=== PATIENT | female | born 1945 | race Caucasian/White ===

== ENCOUNTER 2018-08-13 09:10 | Inpatient (IN) ==
[2018-08-13] MEDS ORDERED: ACETAMINOPHEN 500 MG TABLET PO STA (09:40)
[2018-08-13] MEDS ORDERED: ALBUTEROL 2.5 MG/3 ML NEB RESP TX STA (09:41)
[2018-08-13] MEDS ORDERED: SODIUM CHLORIDE 0.9% 1,000 ML IV STA (09:41)
[2018-08-13 10:00] LABS: Basophils # 0.1 10*3/uL (0.0-0.2); Basophils % 0.3 % (0.0-0.8); Eosinophils # 0.1 10*3/uL (0.0-0.87); Eosinophils % 0.4 % (0.00-10.9); Hematocrit 36.1 VOL% (35.7-47.0); Hemoglobin 11.7 GM/DL (12.0-16.0); Immature Granulocytes % 0.7 %; Immature Granulocytes Absolute 0.12 #; Lymphocytes # 0.7 10*3/uL (1.4-4.0); Lymphocytes % 4.3 % (21.3-54.2); Mean Corpuscular HGB Conc 32.4 GM/DL (32-36); Mean Corpuscular Hemoglobin 29 PG (27-34); Mean Corpuscular Volume 89.8 FL (87-102); Mean Platelet Volume 8.9 FL (9.6-12.0); Monocytes # 0.6 10*3/uL (0.11-0.8); Monocytes % 3.6 % (1.7-12.7); Neutrophils % 90.7 % (38.7-73.9); Platelet Count 270 T/CUMM (130-400); Red Blood Count 4.02 MC/CUMM (3.8-5.5); Red Cell Distribution Width 13.3 % (9.3-17.3); White Blood Count 16.5 T/CUMM (4-12)
[2018-08-13 10:14] LABS: Calcium 9.3 MG/DL (8.5-10.1); Potassium 3.7 MMOL/L (3.5-5.1)
[2018-08-13 10:18] LABS: Lactic Acid 1.3 MMOL/L (0.4-2.0)
[2018-08-13 10:19] LABS: Band Neutrophils 9 % (0-10); Lymphocytes 2 % (20-55); Platelet Estimate Normal; Segmented Neutrophils 85 % (50-85); Total Cells Counted 100
[2018-08-13 10:20] LABS: Anisocytosis Slight
[2018-08-13] MEDS ORDERED: LEVOFLOXACIN INJ 500 MG in PREMIX 1 EACH IV STA (11:48)
[2018-08-13] MEDS ORDERED: ACETAMINOPHEN 325 MG TABLET PO PRN (12:46)
[2018-08-13] MEDS ORDERED: ONDANSETRON 4 MG/2 ML VIAL IV PRN (12:46)
[2018-08-13] MEDS ORDERED: ALBUTEROL 2.5 MG/3 ML NEB RESP TX PRN (12:51)
[2018-08-13] MEDS: ENOXAPARIN 40 MG/0.4 ML SYRINGE SUBCUT SCH (14:11)
[2018-08-13] MEDS: ALBUTEROL/IPRATROPIUM 3 ML NEB RESP TX SCH ×2 (14:20→19:05)
[2018-08-13] MEDS ORDERED: TEMAZEPAM 15 MG CAPSULE PO SCH (21:00)
[2018-08-13] MEDS ORDERED: ESCITALOPRAM 10 MG TABLET PO SCH (21:00)
[2018-08-13] MEDS: guaiFENesin/DM ER 600-30 MG TABLET PO SCH (21:12)
[2018-08-14] MEDS: ALBUTEROL/IPRATROPIUM 3 ML NEB RESP TX SCH ×3 (00:20→13:48)
[2018-08-14 04:05] LABS: Basophils # 0.1 10*3/uL (0.0-0.2); Basophils % 0.4 % (0.0-0.8); Eosinophils # 0.3 10*3/uL (0.0-0.87); Eosinophils % 1.8 % (0.00-10.9); Hematocrit 31.5 VOL% (35.7-47.0); Hemoglobin 9.9 GM/DL (12.0-16.0); Immature Granulocytes % 0.5 %; Immature Granulocytes Absolute 0.07 #; Lymphocytes # 0.8 10*3/uL (1.4-4.0); Lymphocytes % 5.8 % (21.3-54.2); Mean Corpuscular HGB Conc 31.4 GM/DL (32-36); Mean Corpuscular Hemoglobin 28 PG (27-34); Mean Corpuscular Volume 88.5 FL (87-102); Mean Platelet Volume 9.6 FL (9.6-12.0); Monocytes # 0.9 10*3/uL (0.11-0.8); Monocytes % 6.8 % (1.7-12.7); Neutrophils # 11.7 10*3/uL (1.4-7.4); Neutrophils % 84.7 % (38.7-73.9); Platelet Count 249 T/CUMM (130-400); Red Blood Count 3.56 MC/CUMM (3.8-5.5); Red Cell Distribution Width 13.2 % (9.3-17.3); White Blood Count 13.8 T/CUMM (4-12)
[2018-08-14 04:37] LABS: Calcium 8.9 MG/DL (8.5-10.1); Potassium 3.3 MMOL/L (3.5-5.1); Thyroid Stimulating Hormone 0.937 uIU/ml (0.358-3.74)
[2018-08-14] MEDS ORDERED: MONTELUKAST 10 MG TABLET PO SCH (09:00)
[2018-08-14] MEDS ORDERED: OXYBUTYNIN XL 15 MG TABLET PO SCH (09:00)
[2018-08-14] MEDS ORDERED: ANASTROZOLE 1 MG TABLET PO SCH (09:00)
[2018-08-14] MEDS ORDERED: MELOXICAM 7.5 MG TABLET PO SCH (09:00)
[2018-08-14] MEDS ORDERED: PANTOPRAZOLE 40 MG TABLET PO SCH ×2 (09:00)
[2018-08-14] MEDS: guaiFENesin/DM ER 600-30 MG TABLET PO SCH (09:30)
[2018-08-14] MEDS: ENOXAPARIN 40 MG/0.4 ML SYRINGE SUBCUT SCH (12:08)
[2018-08-14 12:18] VITALS: BP 139/79
[2018-08-14] MEDS ORDERED: POTASSIUM CHLORIDE 20 MEQ TABLET PO ONE (12:44)
[2018-08-14] MEDS ORDERED: LEVOFLOXACIN INJ 750 MG in PREMIX 1 EACH IV SCH (13:00)
[2018-08-14] MEDS ORDERED: LEVOFLOXACIN 500 MG TABLET PO SCH (14:00)
== END 2018-08-14 15:58 | disposition home or self-care (01) | DRG 195 ==
LOC: EDUNIT# → EDBD → N.ED 09:10 → N.EDINP 12:46 → N.3E 14:38
PROVIDERS: ADMIT Hospitalist; ATTEND Hospitalist

== ENCOUNTER 2020-11-22 18:39 | Inpatient (IN) ==
[2020-11-22 19:20] LABS: Basophils # 0.1 10*3/uL (0.0-0.2); Basophils % 0.4 % (0.0-0.8); Eosinophils # 0.1 10*3/uL (0.0-0.87); Eosinophils % 0.6 % (0.00-10.9); Hematocrit 33.3 VOL% (35.7-47.0); Hemoglobin 10.6 GM/DL (12.0-16.0); Immature Granulocytes % 1.1 %; Immature Granulocytes Absolute 0.14 #; Lymphocytes # 0.2 10*3/uL (1.4-4.0); Lymphocytes % 1.3 % (21.3-54.2); Mean Corpuscular HGB Conc 31.8 GM/DL (32-36); Mean Platelet Volume 9.4 FL (9.6-12.0); Monocytes % 1.3 % (1.7-12.7); Neutrophils % 95.3 % (38.7-73.9); Platelet Count 262 T/CUMM (130-400); Red Blood Count 3.58 MC/CUMM (3.8-5.5); Red Cell Distribution Width 13.1 % (9.3-17.3); White Blood Count 12.8 T/CUMM (4-12)
[2020-11-22] MEDS ORDERED: LEVOFLOXACIN INJ 500 MG in PREMIX 1 EACH IV STA (19:40)
[2020-11-22] MEDS ORDERED: methylPREDNISolone SOD SUC 125 MG/2 ML VIAL IV STA (19:40)
[2020-11-22 19:44] LABS: Albumin 2.3 G/DL (3.4-5.0); Bilirubin,Total 0.8 MG/DL (0.2-1.0); Calcium 8.7 MG/DL (8.5-10.1); Potassium 3.9 MMOL/L (3.5-5.1); Total Protein 6.6 G/DL (6.4-8.3)
[2020-11-22 19:51] LABS: Band Neutrophils 11 % (0-10); Elliptocytes Few; Lymphocytes 2 % (20-55); Metamyelocytes 1 %; Segmented Neutrophils 84 % (50-85); Total Cells Counted 100
[2020-11-22 19:52] LABS: Burr Cells Few; Hypochromasia 1+; Platelet Estimate Adequate
[2020-11-22] MEDS ORDERED: DEXTROSE 50% 25 GM/50 ML VIAL IV PRN (20:45)
[2020-11-22] MEDS ORDERED: NICOTINE 21 MG/24 HR PATCH TRANSDERM PRN (20:45)
[2020-11-22] MEDS ORDERED: ACETAMINOPHEN 325 MG TABLET PO PRN (20:45)
[2020-11-22] MEDS ORDERED: GLUCAGON 1 MG VIAL IM PRN (20:45)
[2020-11-22] MEDS ORDERED: MORPHINE 4 MG/1 ML VIAL IV PRN (20:45)
[2020-11-22] MEDS ORDERED: ONDANSETRON 4 MG/2 ML VIAL IV PRN (20:45)
[2020-11-22 21:11] LABS: Ferritin 101.3 ng/ml (8-252)
[2020-11-22 23:49] LABS: ABG Base Excess -4.8 MMOL/L (-2.5-2.5); ABG HCO3 20.4 MMOL/L (20-26); ABG Oxygen Saturation 94.3 % (95-100); ABG PH 7.333 (7.35-7.45); ABG PO2 78.2 MM HG (80-95); ABG TCO2 18.8 MMOL/L (23-27); Allen Test Positive
[2020-11-23] MEDS: ALBUTEROL/IPRATROPIUM 3 ML NEB RESP TX SCH ×2 (00:34→07:22)
[2020-11-23] MEDS ORDERED: BENRALIZUMAB 30 MG/ML SYRINGE SUBCUT SCH (02:30)
[2020-11-23] MEDS: ESCITALOPRAM 10 MG TABLET PO SCH ×2 (02:48→21:02)
[2020-11-23] MEDS: MONTELUKAST 10 MG TABLET PO SCH ×2 (02:48→21:02)
[2020-11-23] MEDS: DICLOFENAC SODIUM 50 MG TABLET PO SCH ×3 (02:48→21:02)
[2020-11-23] MEDS: ZALEPLON 5 MG CAPSULE PO SCH ×2 (02:49→21:03)
[2020-11-23] MEDS: BUDESONIDE/FORMOTEROL 160-4.5 INHALER 6 GM INH SCH ×3 (03:10→21:03)
[2020-11-23 06:57] LABS: Albumin 2.2 G/DL (3.4-5.0); Bilirubin,Total 0.5 MG/DL (0.2-1.0); Calcium 8.9 MG/DL (8.5-10.1); Total Protein 6.4 G/DL (6.4-8.3)
[2020-11-23] MEDS ORDERED: IPRATROPIUM 500 MCG/2.5 ML NEB RESP TX SCH (07:00)
[2020-11-23] MEDS ORDERED: methylPREDNISolone 4 MG TABLET PO SCH (09:00)
[2020-11-23] MEDS ORDERED: methylPREDNISolone SOD SUC 40 MG/1 ML VIAL IV SCH (09:00)
[2020-11-23] MEDS: MULTIVITAMIN (CENTRUM) TABLET PO SCH (09:37)
[2020-11-23] MEDS: CALCIUM (CARBONATE)/VITAMIN D 600 MG-400 UNIT TABLET PO SCH (09:37)
[2020-11-23] MEDS: guaiFENesin/DM ER 600-30 MG TABLET PO SCH ×2 (09:37→21:02)
[2020-11-23] MEDS: OXYBUTYNIN XL 15 MG TABLET PO SCH (09:38)
[2020-11-23] MEDS: PANTOPRAZOLE 40 MG TABLET PO SCH (09:38)
[2020-11-23] MEDS: methylPREDNISolone SOD SUC 40 MG/1 ML VIAL IV SCH ×2 (09:50→19:09)
[2020-11-23] MEDS ORDERED: MAGNESIUM SULF RIDER 4 GM in PREMIX 1 EACH IV PRN (14:19)
[2020-11-23] MEDS ORDERED: MAGNESIUM SULF RIDER 2 GM in PREMIX 1 EACH IV PRN (14:19)
[2020-11-23] MEDS: ENOXAPARIN 60 MG/0.6 ML SYRINGE SUBCUT SCH (15:41)
[2020-11-23] MEDS: SODIUM CHLORIDE 0.9% 1,000 ML IV SCH (16:46)
[2020-11-23] MEDS: LEVOFLOXACIN INJ 500 MG in PREMIX 1 EACH IV SCH (21:03)
[2020-11-23] MEDS: IPRATROPIUM 500 MCG/2.5 ML NEB RESP TX SCH (23:04)
[2020-11-23] MEDS: LEVALBUTEROL 1.25 MG/3 ML NEB RESP TX SCH (23:04)
[2020-11-24] MEDS: methylPREDNISolone SOD SUC 40 MG/1 ML VIAL IV SCH ×3 (02:36→17:15)
[2020-11-24] MEDS: SODIUM CHLORIDE 0.9% 1,000 ML IV SCH (05:06)
[2020-11-24] MEDS: ENOXAPARIN 60 MG/0.6 ML SYRINGE SUBCUT SCH (05:13)
[2020-11-24] MEDS: LEVALBUTEROL 1.25 MG/3 ML NEB RESP TX SCH ×4 (06:52→23:34)
[2020-11-24] MEDS: IPRATROPIUM 500 MCG/2.5 ML NEB RESP TX SCH ×3 (06:52→23:34)
[2020-11-24 07:01] LABS: Basophils % 0.1 % (0.0-0.8); Hematocrit 31.6 VOL% (35.7-47.0); Hemoglobin 10.1 GM/DL (12.0-16.0); Immature Granulocytes % 1.5 %; Immature Granulocytes Absolute 0.23 #; Lymphocytes # 0.2 10*3/uL (1.4-4.0); Lymphocytes % 1.5 % (21.3-54.2); Mean Corpuscular Volume 93.8 FL (87-102); Mean Platelet Volume 9.2 FL (9.6-12.0); Monocytes % 3.4 % (1.7-12.7); Neutrophils % 93.5 % (38.7-73.9); Platelet Count 264 T/CUMM (130-400); Red Blood Count 3.37 MC/CUMM (3.8-5.5); Red Cell Distribution Width 13.5 % (9.3-17.3); White Blood Count 15.7 T/CUMM (4-12)
[2020-11-24 07:19] LABS: Platelet Estimate Adequate; Segmented Neutrophils 97 % (50-85); Total Cells Counted 100
[2020-11-24 07:20] LABS: Hypochromasia 1+; Microcytosis 1+
[2020-11-24 07:22] LABS: Ferritin 95.3 ng/ml (8-252)
[2020-11-24 07:36] LABS: Albumin 2.1 G/DL (3.4-5.0); Bilirubin,Total 1.1 MG/DL (0.2-1.0); Calcium 9.9 MG/DL (8.5-10.1); Osmolality,Calculated 278.1 MOS/KG (273-304); Potassium 3.7 MMOL/L (3.5-5.1); Total Protein 6.8 G/DL (6.4-8.3)
[2020-11-24 08:12] LABS: Hepatitis B Core IgM Quant 0.06 Index; Hepatitis B Surface Ag Quant < 0.10 Index; Hepatitis B Surface Ag Result Non-Reactive (NonReactive); Hepatitis C Virus Ab Quant 0.05 Index; Hepatitis C Virus Ab Result Non-Reactive (NonReactive)
[2020-11-24] MEDS: PANTOPRAZOLE 40 MG TABLET PO SCH (10:21)
[2020-11-24] MEDS: MULTIVITAMIN (CENTRUM) TABLET PO SCH (10:22)
[2020-11-24] MEDS: OXYBUTYNIN XL 15 MG TABLET PO SCH (10:22)
[2020-11-24] MEDS: CALCIUM (CARBONATE)/VITAMIN D 600 MG-400 UNIT TABLET PO SCH (10:22)
[2020-11-24] MEDS: guaiFENesin/DM ER 600-30 MG TABLET PO SCH ×2 (10:22→20:27)
[2020-11-24] MEDS: DICLOFENAC SODIUM 50 MG TABLET PO SCH ×2 (10:22→20:27)
[2020-11-24] MEDS: BUDESONIDE/FORMOTEROL 160-4.5 INHALER 6 GM INH SCH ×2 (10:37→20:34)
[2020-11-24] MEDS: carvediloL 6.25 MG TABLET PO SCH ×2 (10:37→17:16)
[2020-11-24] MEDS: RIVAROXABAN 15 MG TABLET PO SCH (17:16)
[2020-11-24] MEDS: ESCITALOPRAM 10 MG TABLET PO SCH (20:27)
[2020-11-24] MEDS: LEVOFLOXACIN INJ 500 MG in PREMIX 1 EACH IV SCH (20:28)
[2020-11-24] MEDS: MONTELUKAST 10 MG TABLET PO SCH (20:28)
[2020-11-24] MEDS: ZALEPLON 5 MG CAPSULE PO SCH (20:28)
[2020-11-25] MEDS: methylPREDNISolone SOD SUC 40 MG/1 ML VIAL IV SCH ×3 (03:00→19:08)
[2020-11-25] MEDS: IPRATROPIUM 500 MCG/2.5 ML NEB RESP TX SCH ×2 (06:52→23:11)
[2020-11-25] MEDS: LEVALBUTEROL 1.25 MG/3 ML NEB RESP TX SCH ×2 (06:52→23:11)
[2020-11-25 07:21] LABS: Alanine Aminotransferase 100 U/L (13-56); Alkaline Phosphatase 151 U/L (45-117); Aspartate Amino Transferase 24 U/L (0-37); Bilirubin,Total < 0.39 MG/DL (0.2-1.0); Blood Urea Nitrogen 40 MG/DL (7-18); Calcium 9.3 MG/DL (8.5-10.1); Carbon Dioxide 26 MMOL/L (21-32); Estimated Glom Filtration Rate 66 ML/MIN; Glucose 127 MG/DL (74-106); Osmolality,Calculated 286.7 MOS/KG (273-304); Sodium 138 MMOL/L (136-145); Total Protein 6.1 G/DL (6.4-8.3)
[2020-11-25] MEDS: CALCIUM (CARBONATE)/VITAMIN D 600 MG-400 UNIT TABLET PO SCH (10:00)
[2020-11-25] MEDS: DICLOFENAC SODIUM 50 MG TABLET PO SCH ×2 (10:00→21:24)
[2020-11-25] MEDS: PANTOPRAZOLE 40 MG TABLET PO SCH (10:00)
[2020-11-25] MEDS: MULTIVITAMIN (CENTRUM) TABLET PO SCH (10:00)
[2020-11-25] MEDS: OXYBUTYNIN XL 15 MG TABLET PO SCH (10:00)
[2020-11-25] MEDS: BUDESONIDE/FORMOTEROL 160-4.5 INHALER 6 GM INH SCH (10:00)
[2020-11-25] MEDS: RIVAROXABAN 15 MG TABLET PO SCH ×2 (10:00→18:37)
[2020-11-25] MEDS: guaiFENesin/DM ER 600-30 MG TABLET PO SCH ×2 (10:00→21:24)
[2020-11-25] MEDS: carvediloL 6.25 MG TABLET PO SCH ×2 (10:00→18:38)
[2020-11-25] MEDS ORDERED: FUROSEMIDE 20 MG/2 ML VIAL IV ONE ×2 (12:23→21:07)
[2020-11-25] MEDS: LEVOFLOXACIN INJ 500 MG in PREMIX 1 EACH IV SCH (21:23)
[2020-11-25] MEDS: ZALEPLON 5 MG CAPSULE PO SCH (21:23)
[2020-11-25] MEDS: ESCITALOPRAM 10 MG TABLET PO SCH (21:24)
[2020-11-25] MEDS: MONTELUKAST 10 MG TABLET PO SCH (21:24)
[2020-11-26] MEDS: BUDESONIDE/FORMOTEROL 160-4.5 INHALER 6 GM INH SCH ×2 (00:52→09:58)
[2020-11-26] MEDS: methylPREDNISolone SOD SUC 40 MG/1 ML VIAL IV SCH ×2 (02:58→09:56)
[2020-11-26 06:14] LABS: Basophils % 0.1 % (0.0-0.8); Hematocrit 30.9 VOL% (35.7-47.0); Hemoglobin 10.2 GM/DL (12.0-16.0); Immature Granulocytes % 2.8 %; Immature Granulocytes Absolute 0.21 #; Lymphocytes # 0.3 10*3/uL (1.4-4.0); Lymphocytes % 3.9 % (21.3-54.2); Mean Corpuscular Volume 91.4 FL (87-102); Mean Platelet Volume 9.5 FL (9.6-12.0); Monocytes % 6.4 % (1.7-12.7); Neutrophils % 86.8 % (38.7-73.9); Platelet Count 274 T/CUMM (130-400); Red Blood Count 3.38 MC/CUMM (3.8-5.5); Red Cell Distribution Width 13.6 % (9.3-17.3); White Blood Count 7.5 T/CUMM (4-12)
[2020-11-26 06:32] LABS: Calcium 9.7 MG/DL (8.5-10.1); Potassium 4.2 MMOL/L (3.5-5.1)
[2020-11-26] MEDS: IPRATROPIUM 500 MCG/2.5 ML NEB RESP TX SCH ×2 (06:55→07:35)
[2020-11-26] MEDS: LEVALBUTEROL 1.25 MG/3 ML NEB RESP TX SCH ×2 (06:56→07:35)
[2020-11-26 07:31] LABS: Band Neutrophils 1 % (0-10); Hypochromasia 1+; Lymphocytes 8 % (20-55); Microcytosis 1+; Ovalocytes Slight; Segmented Neutrophils 87 % (50-85); Total Cells Counted 100
[2020-11-26 07:33] LABS: Platelet Estimate Normal
[2020-11-26] MEDS: DICLOFENAC SODIUM 50 MG TABLET PO SCH (09:56)
[2020-11-26] MEDS: OXYBUTYNIN XL 15 MG TABLET PO SCH (09:56)
[2020-11-26] MEDS: guaiFENesin/DM ER 600-30 MG TABLET PO SCH (09:56)
[2020-11-26] MEDS: CALCIUM (CARBONATE)/VITAMIN D 600 MG-400 UNIT TABLET PO SCH (09:57)
[2020-11-26] MEDS: PANTOPRAZOLE 40 MG TABLET PO SCH (09:57)
[2020-11-26] MEDS: carvediloL 6.25 MG TABLET PO SCH (09:57)
[2020-11-26] MEDS: RIVAROXABAN 15 MG TABLET PO SCH (09:57)
[2020-11-26] MEDS: MULTIVITAMIN (CENTRUM) TABLET PO SCH (09:57)
[2020-11-26 13:12] VITALS: BP 140/75
== END 2020-11-26 14:05 | disposition home or self-care (01) | DRG 190 ==
LOC: EDUNIT# → EDBD → N.ED 18:39 → N.EDINP 20:46 → N.3E 22:20
PROVIDERS: ADMIT Internal Medicine; ATTEND Internal Medicine

== ENCOUNTER 2022-02-13 12:34 | Observation (INO) ==
[2022-02-13] MEDS ORDERED: ONDANSETRON 4 MG/2 ML VIAL IV PRN (13:01)
[2022-02-13] MEDS ORDERED: SODIUM CHLORIDE 0.9% 1,000 ML IV STA (13:02)
[2022-02-13 13:13] LABS: Basophils % 0.1 % (0.0-0.8); Hematocrit 36.3 VOL% (35.7-47.0); Hemoglobin 11.6 GM/DL (12.0-16.0); Immature Granulocytes % 0.4 %; Immature Granulocytes Absolute 0.05 #; Lymphocytes # 0.5 10*3/uL (1.4-4.0); Lymphocytes % 3.7 % (21.3-54.2); Mean Corpuscular Volume 91.9 FL (87-102); Mean Platelet Volume 8.9 FL (9.6-12.0); Monocytes # 0.6 10*3/uL (0.11-0.8); Neutrophils % 91.8 % (38.7-73.9); Platelet Count 276 T/CUMM (130-400); Red Blood Count 3.95 MC/CUMM (3.8-5.5); Red Cell Distribution Width 13.5 % (9.3-17.3); White Blood Count 14.1 T/CUMM (4-12)
[2022-02-13 13:25] LABS: Albumin 3.3 G/DL (3.4-5.0); Bilirubin,Total 0.5 MG/DL (0.20-1.00); Osmolality,Calculated 280.4 MOS/KG (273-304); Potassium 4.1 MMOL/L (3.5-5.1); Total Protein 6.9 G/DL (6.4-8.2)
[2022-02-13 13:36] LABS: Band Neutrophils 1 % (0-10); Lymphocytes 3 % (20-55); Total Cells Counted 100
[2022-02-13 13:37] LABS: Platelet Estimate Adequate
[2022-02-13] MEDS ORDERED: ACETAMINOPHEN 325 MG TABLET PO PRN (15:20)
[2022-02-13] MEDS ORDERED: GLUCAGON 1 MG VIAL IM PRN (15:20)
[2022-02-13] MEDS ORDERED: DEXTROSE 10% 250 ML BAG IV PRN (15:25)
[2022-02-13] MEDS ORDERED: LEVOFLOXACIN INJ 750 MG/150 ML PREMIX IV SCH (16:00)
[2022-02-13] MEDS ORDERED: INSULIN LISPRO 100 UNIT/ML SUBCUT SCH (16:30)
[2022-02-13] MEDS: SODIUM CHLORIDE 0.9% 1,000 ML IV SCH (17:35)
[2022-02-13] MEDS ORDERED: ZALEPLON 5 MG CAPSULE PO PRN (23:05)
[2022-02-14] MEDS: SODIUM CHLORIDE 0.9% 1,000 ML IV SCH (05:17)
[2022-02-14 06:12] LABS: Basophils % 0.1 % (0.0-0.8); Hematocrit 31.6 VOL% (35.7-47.0); Immature Granulocytes % 0.3 %; Immature Granulocytes Absolute 0.02 #; Lymphocytes # 1.2 10*3/uL (1.4-4.0); Lymphocytes % 15.1 % (21.3-54.2); Mean Corpuscular HGB Conc 31.6 GM/DL (32-36); Mean Corpuscular Volume 92.7 FL (87-102); Mean Platelet Volume 9.1 FL (9.6-12.0); Monocytes # 0.7 10*3/uL (0.11-0.8); Monocytes % 8.8 % (1.7-12.7); Neutrophils % 75.7 % (38.7-73.9); Platelet Count 233 T/CUMM (130-400); Red Blood Count 3.41 MC/CUMM (3.8-5.5); Red Cell Distribution Width 13.6 % (9.3-17.3); White Blood Count 7.6 T/CUMM (4-12)
[2022-02-14 06:30] LABS: Alanine Aminotransferase 43 U/L (13-56); Albumin 2.8 G/DL (3.4-5.0); Alkaline Phosphatase 73 U/L (45-117); Aspartate Amino Transferase 21 U/L (0-37); Bilirubin,Total < 0.39 MG/DL (0.20-1.00); Blood Urea Nitrogen 17 MG/DL (7-18); Calcium 8.7 MG/DL (8.5-10.1); Carbon Dioxide 27 MMOL/L (21-32); Chloride 111 MMOL/L (98-107); Glucose 101 MG/DL (74-106); Osmolality,Calculated 284.1 MOS/KG (273-304); Potassium 4.2 MMOL/L (3.5-5.1); Sodium 142 MMOL/L (136-145)
[2022-02-14 07:23] VITALS: BP 135/65
[2022-02-14] MEDS ORDERED: ALBUTEROL/IPRATROPIUM 3 ML NEB RESP TX SCH (08:00)
[2022-02-14] MEDS ORDERED: carvediloL 6.25 MG TABLET PO SCH (08:00)
[2022-02-14] MEDS ORDERED: LACTOBACILLUS ACIDOPHILUS/BULGARICUS 1 PACKET PO SCH (09:00)
[2022-02-14] MEDS ORDERED: MONTELUKAST 10 MG TABLET PO SCH (09:00)
[2022-02-14] MEDS ORDERED: BUDESONIDE/FORMOTEROL 160-4.5 INHALER 6 GM INH SCH (09:00)
[2022-02-14] MEDS ORDERED: OXYBUTYNIN XL 15 MG TABLET PO SCH (09:00)
== END 2022-02-14 10:45 | disposition home or self-care (01) ==
LOC: EDBD → EDUNIT# → N.EDINP 12:34 → N.ED 12:34 → SUATTDRO 15:46 → N.3E 16:42
PROVIDERS: ADMIT Internal Medicine; ATTEND Family Medicine